=== PATIENT | female | born 1970 | race African-American/Black ===

== ENCOUNTER 2018-01-26 08:31 | Emergency (ER) | payer SELFPAY ==
[2018-01-26] MEDS: HYDROcodone/APAP 5/325MG 1 TAB TABLET PO (10:34)
== END 2018-01-26 11:21 | disposition home or self-care (01) ==
LOC: ER 11:21
DX: R25.2 Cramp and spasm (principal); Z88.0 Allergy status to penicillin
CPT/HCPCS: 93970; 99284